=== PATIENT | female | born 1970 | race Caucasian/White ===

== ENCOUNTER → 2016-05-31 | Outpatient (CLI) | payer BC ==
[~2016-05-31] MED LIST: AMBI10TA PO; BENI40TA3 PO; BUSP15TA47 PO; METO50TA2 PO; PERCOCET PO; PROA1AER IN; TRAM50TA2 PO
--- NOTE | 2016-06-03 05:45 | SLEEPCENT ---
DATE OF PROCEDURE: 05/31/2016 ORDERED BY: LARRY Fierro Nocturnal polysomnography was performed for the titration of pressure therapy in this patient with obstructive sleep apnea syndrome, apnea hypopnea index 8.3. For testing, a [employer]Med Quattro full face mask of small size was used. 4 cm of water pressure was applied to the circuit and the lights were extinguished. 7 hours and 37 minutes of data were reviewed. There were 323 minutes of sleep identified. Sleep latency was prolonged at 70 minutes. Rapid eye movement (REM) latency was prolonged at 100 minutes. Sleep architecture improved with optimal pressure therapy. Overall sleep efficiency was 72%. EKG showed a sinus rhythm with an average heart rate of 72 beats per minute. EEG showed normal waveforms for awake and sleep. Respiratory events were best palliated with CPAP at a pressure of +5. CPAP tolerance was good. Some limb activity was appreciated early in the study. This did improve substantially later in the test. The limb movement arousal index was 8.9 IMPRESSION: Obstructive sleep apnea syndrome (G47.33). RECOMMENDATION: Nightly use of pressure therapy 5 cm of water.
== END ==
LOC: M SLEEP 19:45
PROVIDERS: ATTEND Nurse Practitioner Adult Health
DX: G47.33 Obstructive sleep apnea (adult) (pediatric) (principal)